=== PATIENT | female | born 1945 | race Caucasian/White ===

== ENCOUNTER → 2017-06-09 07:35 | Outpatient (CLI) | payer MEDICARE, BC ==
[2011-04-24 12:27] VITALS: BMI 31.0
== END | disposition home or self-care (01) ==
LOC: D.US 06-06 11:00
DX: R10.10 Upper abdominal pain, unspecified (principal)

== ENCOUNTER → 2017-06-12 07:58 | Outpatient (CLI) | payer MEDICARE, BC ==
[2011-04-24 12:27] VITALS: BMI 31.0
== END | disposition home or self-care (01) ==
LOC: D.CT 07:58
DX: R16.0 Hepatomegaly, not elsewhere classified (principal); R93.2 Abnormal findings on diagnostic imaging of liver and biliary tract

== ENCOUNTER → 2017-07-10 08:26 | Outpatient (CLI) | payer MEDICARE, BC ==
[2011-04-24 12:27] VITALS: BMI 31.0
== END | disposition home or self-care (01) ==
LOC: D.NM 07-03 08:30
DX: R11.0 Nausea (principal); R14.0 Abdominal distension (gaseous)

== ENCOUNTER → 2017-07-29 10:43 | Outpatient (CLI) | payer MEDICARE, BC ==
[2011-04-24 12:27] VITALS: BMI 31.0
[~2017-07-29 10:43] MED LIST: AVALIDE 300-12.1 TA1 PO; BYSTOLIC5 MG PO; DILAUDID2 MG PO; XANAX0.5 MG PO
[2017-08-02 10:12] LABS: CORTISOL FREE - 24HR 31 ug/24 hr (0-50); CORTISOL FREE - UR 14 ug/L (Undefined)
[2017-08-02 12:11] LABS: METAN - URINE 55 ug/L (Undefined); METAN - URINE 24HR 121 ug/24 hr (45-290)
[2017-08-03 19:07] LABS: VMA - URINE 2.2 mg/L (Undefined)
[2017-08-07 20:09] LABS: ALDOSTERONE - 24HR <5.50 ug/24 hr (0.00-19.00); ALDOSTERONE - UR <2.50 ug/L (Not Estab.)
[2017-08-12 06:44] VITALS: BMI 31.3
== END | disposition home or self-care (01) ==
LOC: D.LAB 10:43
PROVIDERS: Surgery
DX: D35.00 Benign neoplasm of unspecified adrenal gland (principal)

== ENCOUNTER 2017-08-12 06:00 | Day surgery (SDC) | payer MEDICARE, BC ==
[2017-08-11 13:56] LABS: BASOPHILS 0.4 % (0-2); EOSINOPHILS 2.7 % (0-7); HEMATOCRIT 46.4 % (36.0-48.0); HEMOGLOBIN 15.5 g/dL (12-16); IMMATURE GRANULOCYTES 0.2 % (0-5); LYMPHOCYTES 42.8 % (15-50); MCH 29.6 pg (26.0-34.0); MCHC 33.4 g/dL (31.0-37.0); MCV 88.7 fL (80.0-100.0); MEAN PLATELET VOLUME 9.4 fL (7.4-10.4); NEUTROPHILS 46.9 % (40-80); PLATELET COUNT 342 10x3/uL (130-400); RBC 5.23 10x6/uL (4.00-5.40); RDW 15.2 % (11.5-14.5); WBC 10.1 10x3/uL (4.8-10.8)
[2017-08-11 14:11] LABS: CALC OSMOLALITY 278 mosm/kg (275-300); CALCIUM 9.7 mg/dL (8.5-10.1); CARBON DIOXIDE 30.7 mmol/L (21.0-32.0); CHLORIDE - SERUM 100 mmol/L (98-107); CREATININE - SERUM 0.7 mg/dL (0.6-1.3); GLUCOSE 121 mg/dL (74-106); POTASSIUM - SERUM 3.2 mmol/L (3.5-5.1); SODIUM 140 mmol/L (136-145); UREA NITROGEN 10 mg/dL (7-18); eGFR NON AFRICAN AMERICAN 88 mL/min (90-120)
[~2017-08-12] VITALS: Ht 167.6 cm; Wt 88.0 kg
--- NOTE | ~2017-08-12 | OP ---
PATIENT NAME: CORINNE ROTH MEDICAL RECORD: [id number] :49 LOCATION:D.OPS ADMISSION DATE: SURGEON: MARCUS BELL MD DATE OF OPERATION: 08/12/2017 PREOPERATIVE DIAGNOSES: 1. Biliary dyskinesia. 2. Hypertension. 3. Arthritis. 4. Left adrenal mass. POSTOPERATIVE DIAGNOSES: 1. Biliary dyskinesia. 2. Hypertension. 3. Arthritis. 4. Left adrenal mass. PROCEDURE: Laparoscopic cholecystectomy. SURGEON: Marcus Bell MD REPORT OF PROCEDURE: The patient's abdomen was prepped and draped in sterile fashion. A cutdown was made on the superior aspect of the umbilicus. Electrocautery was used to dissect through the subcutaneous tissues and 0 Vicryls were placed in the fascia bilaterally. The fascia was incised with a 15 blade and I bluntly entered the peritoneal cavity. A 12-mm Rafael port was inserted and the abdomen was insufflated. Under direct visualization, a 5-mm trocar was placed in the epigastrium and 2 more 5-mm trocars were placed in the right subcostal region. The gallbladder was grasped and elevated. The cystic artery and cystic duct were dissected free and these were clipped proximally and distally and ligated in standard fashion. The gallbladder was taken off the liver bed using electrocautery and placed into the right upper quadrant. Any bleeding from the liver bed was then treated with electrocautery. At this point, the ports and insufflation were then removed and the gallbladder was taken out through the umbilicus. The umbilical fascia was closed with interrupted 0 Vicryls times 3. The wounds were irrigated out with normal saline and infused with 10 mL of 0.25% Marcaine with epinephrine. The skin incisions were all closed with subcutaneous 5-0 Monocryl and dressed appropriately. COMPLICATIONS: None. CONDITION: Stable. ANESTHESIA: General endotracheal and local. BLOOD LOSS: Minimal. TRANSINT:[id number] Voice Confirmation ID: [id number] DOCUMENT ID: [id number] OPERATIVE REPORT [id number] IRACORINNE MARCUS BANDA MD at 1144 CC: [id number] DICTATION DATE: 08/21/17 1442 [employer] ELECTRICAL PERSON: 08/21/17 1454 [facility] 08/12/17 [facility] [address] [place] [address]
[~2017-08-12 06:00] MED LIST changes: -DILAUDID2 MG PO
[2017-08-12 06:44] VITALS: Ht 167.6 cm; Wt 88.0 kg
[2017-08-12] MEDS ORDERED: DILAUDID2 MG PO (08:43)
== END 2017-08-12 11:15 | disposition home or self-care (01) ==
LOC: D.OPS 06:00
PROVIDERS: Surgery
DX: K82.8 Other specified diseases of gallbladder (principal); I10 Essential (primary) hypertension; M19.91 Primary osteoarthritis, unspecified site; Z01.812 Encounter for preprocedural laboratory examination

== ENCOUNTER → 2019-12-14 13:30 | Outpatient (CLI) | payer MEDICARE, BC ==
[2017-08-12 06:44] VITALS: BMI 31.3
[~2019-12-14 13:30] MED LIST changes: +DILAUDID2 MG PO
== END | disposition home or self-care (01) ==
LOC: D.CT 13:30
PROVIDERS: ATTEND Family Medicine
DX: R91.8 Other nonspecific abnormal finding of lung field (principal)

== ENCOUNTER 2019-12-20 06:29 | Day surgery (SDC) | payer MEDICARE, BC ==
[~2019-12-20] VITALS: Ht 167.6 cm; Wt 82.7 kg
[2019-12-20 06:58] LABS: BASOPHILS 0.5 % (0-2); EOSINOPHILS 1.2 % (0-7); HEMATOCRIT 45.2 % (36.0-48.0); HEMOGLOBIN 14.6 g/dL (12-16); IMMATURE GRANULOCYTES 0.4 % (0-5); LYMPHOCYTES 23.6 % (15-50); MCH 28.7 pg (26.0-34.0); MCHC 32.3 g/dL (31.0-37.0); MCV 88.8 fL (80.0-100.0); MEAN PLATELET VOLUME 8.8 fL (7.4-10.4); MONOCYTES 8.1 % (2-11); NEUTROPHILS 66.2 % (40-80); PLATELET COUNT 367 10x3/uL (130-400); RBC 5.09 10x6/uL (4.00-5.40); RDW 15.1 % (11.5-14.5); WBC 9.4 10x3/uL (4.8-10.8)
[2019-12-20 07:06] LABS: APTT 32.5 SECONDS (22.8-39.4); CALC OSMOLALITY 280 mosm/kg (275-300); CARBON DIOXIDE 33.7 mmol/L (21.0-32.0); CHLORIDE - SERUM 102 mmol/L (98-107); CREATININE - SERUM 0.7 mg/dL (0.6-1.3); GLUCOSE 108 mg/dL (74-106); INR 0.92 (0.85-1.17); POTASSIUM - SERUM 3.4 mmol/L (3.5-5.1); PROTIME 12.4 SECONDS (11.6-15.0); SODIUM 141 mmol/L (136-145); UREA NITROGEN 10 mg/dL (7-18); eGFR NON AFRICAN AMERICAN 87 mL/min (90-120)
[2019-12-20 07:50] VITALS: BP 149/86; Ht 167.6 cm; Wt 82.7 kg
--- NOTE | 2019-12-20 12:40 | NUR ---
PIV DC'D WITH TIP INTACT. PATIENT AMBULATING AROUND ROOM WITHOUT UNSTEADINESS OR DIZZINESS, AMBULATES TO BATHROOM AND VOIDS IN TOILET WITHOUT DIFFICULTY. DISCHARGE INSTRUCTIONS REVIEWED WITH PATIENT, PATIENT DRESSING IN PERSONAL CLOTHING
== END 2019-12-20 12:48 | disposition home or self-care (01) ==
LOC: D.SP 06:29 → D.CT 09:00 → EDSTATUS 09:00 → D.SP 12:48
PROVIDERS: General Practice; ATTEND Family Medicine
DX: C34.32 Malignant neoplasm of lower lobe, left bronchus or lung (principal); I10 Essential (primary) hypertension; E66.3 Overweight; Z68.29 Body mass index [BMI] 29.0-29.9, adult; E78.5 Hyperlipidemia, unspecified; K21.9 Gastro-esophageal reflux disease without esophagitis; F17.200 Nicotine dependence, unspecified, uncomplicated